=== PATIENT | female | born 1980 ===

== ENCOUNTER 2020-11-09 23:07 | Outpatient (CLI) | payer OTHER ==
[2020-11-09 23:35] VITALS: BP 118/67
[2020-11-09] MEDS ORDERED: LACTATED RINGERS 1,000 ML IV ONE (23:47)
[2020-11-10 00:31] LABS: Basophils % (Auto) 0.5 % (0.0-1.8); Eosinophils # (Auto) 0.1 K/mm3 (0.0-0.4); Eosinophils % (Auto) 0.7 % (0.0-4.3); Hematocrit 36.1 % (30.3-42.9); Hemoglobin 12.4 gm/dl (10.1-14.3); Lymphocytes # (Auto) 2.5 K/mm3 (1.2-5.4); Lymphocytes % (Auto) 32.3 % (13.4-35.0); Mean Corpuscular HGB Conc 34 % (30-34); Mean Corpuscular Volume 88 fl (79-97); Monocytes # (Auto) 0.6 K/mm3 (0.0-0.8); Monocytes % (Auto) 7.4 % (0.0-7.3); Platelet Count 175 K/mm3 (140-440); Red Blood Count 4.12 M/mm3 (3.65-5.03); Red Cell Distribution Width 13.4 % (13.2-15.2)
[2020-11-10 01:36] LABS: Bacteria,Urine 1+ /HPF (Negative); Bilirubin,Urine NEG (Negative); Blood,Urine LG (Negative); Color,Urine Red (Yellow); RBC,Urine > 182.0 /HPF (0.0-6.0); Urobilinogen,Urine < 2.0 mg/dL (<2.0)
[2020-11-10 01:40] LABS: Amphetamine Screen,Urine Negative; Benzodiazepines Screen,Urine Negative; Cannabinoid Screen,Urine Negative; Cocaine Screen,Urine Negative; Methadone Screen,Urine Negative; Opiate Screen,Urine Negative
--- NOTE | 2020-11-10 01:43 | Ultrasound Report ---
ULTRASOUND OBSTETRIC INDICATION / CLINICAL INFORMATION: assessment, placenta placement. Clinical Gestational Age (GA) in weeks, days: 34 weeks 2 days TECHNIQUE: Transabdominal. COMPARISON: None available. FINDINGS: NUMBER: Single PRESENTATION: cephalic PLACENTA: Posterior/fundal and free of the os. No evidence of abruption. MATERNAL ADNEXA: No significant abnormality. AMNIOTIC FLUID VOLUME: normal AMNIOTIC FLUID INDEX (NORAH) in cm (if measured): 11.1 cm A anatomical survey was not performed. MEASUREMENTS: - Biparietal Diameter = 8.0 cm = 32 weeks, 1 days - Head Circumference = 29.8 cm = 33 weeks, 0 days - Abdominal Circumference = 28.1 cm = 32 weeks, 1 days - Femur Length = 6.3 cm = 32 weeks, 3 days - Estimated Weight (in grams, if calculated): 1947 grams - Heart Rate (beats per minute): 123 ADDITIONAL FINDINGS: Cervical length is 4.6 cm PERCENTILE ESTIMATED WEIGHT (if calculated): AVERAGE ULTRASOUND AGE (AUA) in weeks, days = 32 weeks 3 days IMPRESSION: 1. Single intrauterine with AUA of 32 weeks, 3 days 2. No significant sonographic abnormality. Signer Name: Paloma Rocha MD Signed: 11/10/2020 1:38 AM Workstation Name: [id number]
== END 2020-11-10 02:00 | disposition home or self-care (01) ==
LOC: TRG 23:07 → APU 23:16 → TRG 11-10 02:00
PROVIDERS: ATTEND Obstetrics & Gynecology
DX: O46.93 Antepartum hemorrhage, unspecified, third trimester (principal); O24.419 Gestational diabetes mellitus in pregnancy, unspecified control; O09.523 Supervision of elderly multigravida, third trimester; Z3A.34 34 weeks gestation of pregnancy
CPT/HCPCS: 36415; 59025; 76816; 80307; 81001; 85025; 86850; 86900; 86901; 96360; J7120